=== PATIENT | male | born 1975 | race African-American/Black ===

== ENCOUNTER 2023-03-28 00:38 | Emergency (ER) | payer OTHER ==
[2023-03-28] MEDS ORDERED: Sodium Chloride 0.9% 10 ML Syringe FLUSH PRN (01:39)
[2023-03-28] MEDS ORDERED: Sodium Chloride 0.9% 2.5 ML Syringe FLUSH PRN (01:39)
[2023-03-28] MEDS ORDERED: Ketorolac 30 MG/ML SDV IM ONE (01:47)
[2023-03-28 02:03] LABS: HEMATOCRIT 36.7 % (42.0-52.0); HEMOGLOBIN 13.5 g/dL (14.0-18.0); MEAN CORPUSCULAR HEMOGLOBIN 30.5 pg (28.0-32.0); MEAN CORPUSCULAR HGB CONC 36.8 g/dL (32.0-36.0); MEAN PLATELET VOLUME 13.1 fL (9.4-12.4); NRBC ABSOLUTE 0.03 K/uL (0.00-0.02); NRBC PERCENT 0.2 /100WBC (0.0-0.2); PLATELET COUNT,PLT 192 K/uL (150-400); RED BLOOD CELL COUNT 4.42 M/uL (4.52-5.90); WHITE BLOOD CELL COUNT,WBC 12.54 K/uL (3.9-11.3)
[2023-03-28 02:28] LABS: CALCIUM 9.9 mg/dL (8.5-10.1); CARBON DIOXIDE,CO2 24.8 mmol/L (21.0-32.0); CREATININE 1.7 mg/dL (0.8-1.3); EST CRCL DRUG DOSING (CG) 54.87 mL/min; POTASSIUM,K 4.1 mmol/L (3.5-5.1)
[2023-03-28 02:36] LABS: BASOPHILS ABSOLUTE MAN 0.13 K/uL (0.00-0.20); BASOPHILS PERCENT MAN 1 % (0-1); LYMPHOCYTES ABSOLUTE MAN 1.13 K/uL (1.00-4.80); LYMPHOCYTES PERCENT MAN 9 % (24-44); MONOCYTES PERCENT MAN 8 % (0-8); SEG NEUTROPHILS ABSOLUTE MAN 10.28 K/uL (1.80-7.70); SEG NEUTROPHILS PERCENT MAN 82 % (41-71)
[2023-03-28] MEDS ORDERED: Morphine 4 MG/ML Syringe IVPUSH ONE (02:51)
[2023-03-28] MEDS: Sodium Chloride 0.9% 500 ML IV SCH ×2 (03:20→03:37)
[2023-03-28 04:52] LABS: CALCIUM 9.2 mg/dL (8.5-10.1); CARBON DIOXIDE,CO2 23.9 mmol/L (21.0-32.0); CREATININE 1.5 mg/dL (0.8-1.3); EST CRCL DRUG DOSING (CG) 62.19 mL/min; POTASSIUM,K 4.1 mmol/L (3.5-5.1)
== END 2023-03-28 05:16 | disposition home or self-care (01) ==
LOC: MW.ED 00:38
DX: M79.604 Pain in right leg (principal); M79.605 Pain in left leg; Z88.8 Allergy status to other drugs, medicaments and biological substances
CPT/HCPCS: 36415; 80048; 82550; 85025; 93005; 93970; 96372; 96374; 99284; J1885; J2270; J3490; J7040

== ENCOUNTER 2023-12-28 08:37 | Emergency (ER) | payer OTHER ==
[2023-12-28] MEDS: Nitroglycerin 0.4 MG Tab.SL SL ONE (09:01)
[2023-12-28] MEDS: Ketorolac 30 MG/ML SDV IVPUSH ONE (09:02)
[2023-12-28] MEDS: Sodium Chloride 0.9% 2.5 ML Syringe FLUSH PRN (09:04)
[2023-12-28] MEDS: Sodium Chloride 0.9% 10 ML Syringe FLUSH PRN (09:04)
[2023-12-28 09:14] LABS: A/G RATIO 0.9 (0.9-1.6); ALBUMIN 4.3 g/dL (3.4-5.0); BILIRUBIN TOTAL 2.4 mg/dL (0.2-1.0); CALCIUM 11.5 mg/dL (8.5-10.1); CARBON DIOXIDE,CO2 27.1 mmol/L (21.0-32.0); CREATININE 1.7 mg/dL (0.8-1.3); EST CRCL DRUG DOSING (CG) 54.27 mL/min; POTASSIUM,K 3.9 mmol/L (3.5-5.1); PROTEIN TOTAL,TP 8.9 g/dL (6.4-8.2)
[2023-12-28 09:29] LABS: HEMATOCRIT 35.6 % (42.0-52.0); HEMOGLOBIN 12.9 g/dL (14.0-18.0); MEAN CORPUSCULAR HEMOGLOBIN 30.3 pg (28.0-32.0); MEAN CORPUSCULAR HGB CONC 36.2 g/dL (32.0-36.0); MEAN CORPUSCULAR VOLUME 83.6 fL (83.0-99.0); MEAN PLATELET VOLUME 12.1 fL (9.4-12.4); NRBC ABSOLUTE 0.03 K/uL (0.00-0.02); NRBC PERCENT 0.3 /100WBC (0.0-0.2); PLATELET COUNT,PLT 201 K/uL (150-400); RED BLOOD CELL COUNT 4.26 M/uL (4.52-5.90); WHITE BLOOD CELL COUNT,WBC 11.59 K/uL (3.9-11.3)
[2023-12-28 09:30] LABS: BAND ABSOLUTE MAN 0.12; BAND PERCENT MAN 1 %; BASOPHILS ABSOLUTE MAN 0.12 K/uL (0.00-0.20); BASOPHILS PERCENT MAN 1 % (0-1); LYMPHOCYTES ABSOLUTE MAN 0.93 K/uL (1.00-4.80); LYMPHOCYTES PERCENT MAN 8 % (24-44); MONOCYTES ABSOLUTE MAN 1.97 K/uL (0.00-0.80); MONOCYTES PERCENT MAN 17 % (0-8); MYELOCYTE ABSOLUTE MAN 0.12; MYELOCYTE PERCENT MAN 1 %; SEG NEUTROPHILS ABSOLUTE MAN 8.34 K/uL (1.80-7.70); SEG NEUTROPHILS PERCENT MAN 72 % (41-71)
== END 2023-12-28 13:25 | disposition home or self-care (01) ==
LOC: MW.ED 08:37
DX: R07.9 Chest pain, unspecified (principal); I10 Essential (primary) hypertension; Z88.5 Allergy status to narcotic agent; Z79.899 Other long term (current) drug therapy
CPT/HCPCS: 36415; 71046; 80053; 84484; 85025; 93005; 96374; 99285; A9270; J1885; J3490; 93010; 99284